=== PATIENT | male | born 1945 | race Caucasian/White ===

== ENCOUNTER 2018-01-09 12:06 | Inpatient (IN) ==
[~2018-01-09 12:06] MED LIST: Aminoglycoside Consult 1 EACH MC ONE
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
[2018-01-09] MEDS ORDERED: Isovue-370 500 ML INFUS..BTL IV ONE (13:59)
[2018-01-09 14:08] LABS: Basophils % 0.3 %; Eosinophils # 0.1 K/mcL (0.0-0.6); Eosinophils % 0.7 %; Hematocrit 41.5 % (37.5-50.1); Hemoglobin 13.9 g/dL (12.9-16.9); Immature Granulocytes % 0.3 % (0-4); Lymphocytes # 2.2 K/mcL (0.6-4.6); Lymphocytes % 22.8 %; Mean Corpuscular HGB Conc 33.5 g/dL (31.6-35.5); Mean Corpuscular Hemoglobin 28.3 pg (28.0-33.3); Mean Corpuscular Volume 84.5 fL (83.0-100.0); Mean Platelet Volume 9.1 fL (9.4-12.4); Monocytes # 0.7 K/mcL (0.0-1.3); Neutrophils # 6.7 K/mcL (1.6-8.9); Platelet Count 205 K/mcL (140-400); Red Blood Count 4.91 M/mcL (4.19-5.50); Red Cell Distribution Width 14.1 % (11.5-14.5); Segmented Neutrophils % 68.9 %
[2018-01-09 14:27] LABS: Troponin I < 0.03 ng/mL (< 0.04)
[2018-01-09 14:40] LABS: BUN/Creatinine Ratio 19 (6-26); Blood Urea Nitrogen 17 mg/dL (8-23); Calcium 9.7 mg/dL (8.6-10.3); Carbon Dioxide 23 mEq/L (23-29); Chloride 102 mEq/L (98-107); Glucose 130 mg/dL (70-105); Osmolality,Calculated 281 (280-300); Potassium 4.4 mEq/L (3.5-5.1); Sodium 134 mEq/L (136-145); eGFR For Non-African Americans > 60 (> 60)
[2018-01-09] MEDS ORDERED: cefTRIAXone 1,000 MG in Water for inj. (sterile) 20 ML 10 ML IVP ONE (16:37)
[2018-01-09] MEDS ORDERED: Azithromycin 500 MG in D5% in Water 250 ML IVPB ONE (16:38)
[2018-01-09 17:13] LABS: INR 1.1; Prothrombin Time 12.1 Seconds (9.4-12.1)
[2018-01-09] MEDS ORDERED: Acetaminophen 325 MG TABLET PO PRN (17:44)
[2018-01-09] MEDS ORDERED: Naloxone 0.4 MG/ML INJ IVP PRN (17:44)
[2018-01-09] MEDS ORDERED: *HR* OxyCODONE Immed Rel 5 MG TABLET PO PRN (17:44)
[2018-01-09] MEDS ORDERED: *HR* HYDROcodone/Acet 5/325 mg TABLET PO PRN (17:44)
[2018-01-09] MEDS ORDERED: Ringers Solution, Lactated 1,000 ML IVC SCH (17:45)
[2018-01-09] MEDS ORDERED: 0.9 % Sodium Chloride 500 ML ONE (17:47)
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
--- NOTE | 2018-01-09 18:08 | IR Progress Note ---
Vital Signs: Vital Signs/O2 Sat, Most Current Temp Pulse Resp BP Pulse Ox 98.1 F 65 18 120/78 99 01/09/18 13:08 01/09/18 15:46 01/09/18 17:45 01/09/18 17:45 01/09/18 15:46 Assessment and Plan Patient imaging reviewed and the patient was evaluated in CT. No clinical signs of infection. Very tiny volume of pleural fluid at the right lung base. There is insufficient fluid for aspiration/drainage at this time. Discussed with the patient and his . It is not indicated to attempt aspiration of the fluid at this time given the small amount. Short term CT followup can be obtained if there is a clinical concern for an empyema. This was discussed with the ER as well. Jeromy Murrieta MD
[2018-01-10] MEDS ORDERED: 0.9 % Sodium Chloride 1,000 ML IVC SCH (00:45)
[2018-01-10] MEDS ORDERED: 0.9 % Sodium Chloride 1,000 ML ONE (00:54)
[2018-01-10] MEDS: Piperacillin/Tazobactam 3.375 GM in 0.9 % Sodium Chloride Mini Bag 100 ML IVPB SCH ×2 (01:01→07:59)
[2018-01-10 06:22] LABS: Basophils % 0.3 %; Eosinophils # 0.1 K/mcL (0.0-0.6); Eosinophils % 1.6 %; Hematocrit 39.9 % (37.5-50.1); Hemoglobin 13.2 g/dL (12.9-16.9); Immature Granulocytes % 0.3 % (0-4); Lymphocytes # 2.1 K/mcL (0.6-4.6); Lymphocytes % 28.4 %; Mean Corpuscular HGB Conc 33.1 g/dL (31.6-35.5); Mean Corpuscular Hemoglobin 28.3 pg (28.0-33.3); Mean Corpuscular Volume 85.4 fL (83.0-100.0); Mean Platelet Volume 9.1 fL (9.4-12.4); Monocytes # 0.6 K/mcL (0.0-1.3); Monocytes % 8.4 %; Neutrophils # 4.6 K/mcL (1.6-8.9); Platelet Count 188 K/mcL (140-400); Red Blood Count 4.67 M/mcL (4.19-5.50); Red Cell Distribution Width 14.2 % (11.5-14.5)
[2018-01-10 06:27] LABS: Prothrombin Time 11.1 Seconds (9.4-12.1)
[2018-01-10 06:42] LABS: BUN/Creatinine Ratio 16 (6-26); Blood Urea Nitrogen 15 mg/dL (8-23); Calcium 9.1 mg/dL (8.6-10.3); Carbon Dioxide 26 mEq/L (23-29); Chloride 106 mEq/L (98-107); Glucose 125 mg/dL (70-105); Osmolality,Calculated 286 (280-300); Potassium 4.3 mEq/L (3.5-5.1); Sodium 137 mEq/L (136-145); eGFR For Non-African Americans > 60 (> 60)
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
[2018-01-10] MEDS: Famotidine 20 MG TABLET PO SCH ×2 (10:43→20:05)
[2018-01-10] MEDS: Levofloxacin 750 MG/150 ML 750 MG/150 ML BAG IVPB SCH (10:43)
[2018-01-10] MEDS: Ibuprofen 600 MG TABLET PO SCH ×3 (10:43→23:33)
[2018-01-10 11:37] LABS: Adenovirus Not Detected (Not Detect); Bordetella Pertussis Not Detected (Not Detect); Chlamydophila pneumoniae Not Detected (Not Detect); Coronavirus 229E Not Detected (Not Detect); Coronavirus HKU1 Not Detected (Not Detect); Coronavirus NL63 Not Detected (Not Detect); Coronavirus OC43 Not Detected (Not Detect); Human Metapneumovirus Not Detected (Not Detect); Human Rhinovirus/Enterovirus Not Detected (Not Detect); Influenza A Subtype 2009 H1 Not Detected (Not Detect); Influenza A Untypeable Not Detected (Not Detect); Influenza B Not Detected (Not Detect); Mycoplasma pneumoniae Not Detected (Not Detect); Parainfluenza Virus 1 Not Detected (Not Detect); Parainfluenza Virus 2 Not Detected (Not Detect); Parainfluenza Virus 3 Not Detected (Not Detect); Parainfluenza Virus 4 Not Detected (Not Detect); Respiratory Syncytial Virus Not Detected (Not Detect)
[2018-01-11] MEDS ORDERED: *HR* Enoxaparin 40 MG/0.4 ML SYRINGE SQ SCH (06:00)
[2018-01-11 07:14] VITALS: BP 138/80
[2018-01-11] MEDS: Levofloxacin 750 MG/150 ML 750 MG/150 ML BAG IVPB SCH (08:28)
[2018-01-11] MEDS: Ibuprofen 600 MG TABLET PO SCH (08:28)
[2018-01-11] MEDS: Famotidine 20 MG TABLET PO SCH (08:29)
--- NOTE | 2018-01-11 09:26 | Discharge Summary ---
- NOTES TO OUTPATIENT PROVIDER Notes to Outpatient Provider: he requires a completion of a ten day course of levaquin, in 4-6 weeks he should see Pulm and have repeat CT chest preformed. Orders not resulted at time of discharge: Pending orders 01/09/18 17:41 Culture,Sputum with Gram Stain [RM] Stat Date of Encounter: 01/11/18 Time of Encounter: 10:00 - Discharge Diagnosis (1) Right-sided chest wall pain Priority: Primary Status: Acute Assessment and Plan: 2/2 Right lung small developing empyema and suspected multifocal pna -prn PO pain control, stading nsaid -treatment as below -no other chest pain, trop negative, EKG without ischemic changes in ED, CTA neg for PE (2) Multifocal pneumonia Priority: Primary Status: Suspected Assessment and Plan: Possible pna, Acquired in community, organism not known at this time, though no leukocytosis, fever or cough -supp o2 prn, incentive spirometry -sputum cx normal resp pema -bl cx ngtd, legionella and strep ag neg -resp viral panel neg -vanc + zosyn empirically as ? empyemea developing -IR for questionable empyema as below -pulm consulted- can de escalate to levaquin, will need 7-10 days and an outpt ct in follow up in 4-[address] Johnny gonzalez at that time -start motrin + ppi/h2 lovely for pain for next 2-3 days -may dc to home with pulm fu (3) Empyema Priority: Primary Status: Acute Assessment and Plan: CXR 01/09: There is a questionable right infrahilar enlarged lymph node or mass. Mild medial right lower lobe atelectasis. Further evaluation with CT thorax with contrast is recommended to evaluate the hilum. CAT Chest 01/09: 1. No acute pulmonary emboli. 2. Right posteromedial basilar mild loculated pleural effusion and adjacent pleural thickening. This could represent a small developing empyema. 3. Patchy bibasilar pulmonary opacities concerning for multifocal bronchopneumonia. 4. There is no hilar mass concerning for primary malignancy. Mild symmetric hilar borderline enlarged lymph nodes likely reactive in nature. No leukoytosis, sxs beside pain, no fevers, not septic, no resp distress Former smoker Former injury to rib cage with multiple broken ribs (by tractor) 2013 His presentation is not c/w CT findings as reported above -vanc + zosyn empirically -pain control -bl cxs ngtd -sputum, strep and legionella ag and vrp as above -IR eval 01/09 and too little fluid to drain -pulm consulted for further work up and treatment recs as above Hospital course: Mr. Underwood is a 73 year old male admitted for right sided chest wall pain found to have small developing empyema and early pna with no other symptoms, leukocytosis or fever. IR and pulm consulted and work up, treatment and dc recs as noted in details above in assessment and plan. he was dc to home in stable condition with pulm fu and plan to cont abx, nsaid and ppi/h2 lovely on dc and repeat ct scan in 4-6 weeks Discharge discussed with: patient - Time Spent with Patient Total time spent providing and/or coordinating discharge services: Less than 30 minutes - Discharge Medications Prescriptions: Ibuprofen [Motrin] 600 mg PO Q8HR 2 Days #6 tablet Famotidine [Pepcid] 20 mg PO BID 3 Days #6 tablet levoFLOXacin [Levaquin] 750 mg PO DAILY 8 Days #8 tablet Omeprazole [PriLOSEC] 20 mg PO DAILY@0630 3 Days #3 capsule. Home Medications: Famotidine [Pepcid] 20 mg PO BID 3 Days #6 tablet 01/11/18 [Rx] Ibuprofen [Motrin] 600 mg PO Q8HR 2 Days #6 tablet 01/11/18 [Rx] Omeprazole [PriLOSEC] 20 mg PO DAILY@0630 3 Days #3 capsule. 01/11/18 [Rx] levoFLOXacin [Levaquin] 750 mg PO DAILY 8 Days #8 tablet 01/11/18 [Rx] Allergies/Adverse Reactions: 3 Allergy/AdvReac Type Severity Reaction Status Date / Time No Known Allergies Allergy Verified 01/09/18 12:09 Date of admission: 01/09/18 17:40 Primary care physician: Sammy Main Consults: 01/10/18 08:15 Consult to Pulmonology [CONS] Routine Consulting Provider: [facility] Reason for Consult: pt c/o r rib pain found to have ?empyema and multi focal pna but asx, tobacco hx, please eval for tx and w/u recs Call Completed: Yes Discharging clinician: Jordyn Barrera - Constitutional Vitals: Temp Pulse Resp BP Pulse Ox 97.5 F L 57 16 138/80 95 01/11/18 07:10 01/11/18 07:10 01/11/18 07:10 01/11/18 07:10 01/11/18 07:10 Exam: General: awake, alert, appears stated age Cardiovascular:regular rate and rhythm, normal S1 & S2, no murmurs, no lower extremity edema Lungs:Normal breath sounds, no wheezes rhonchi, or crackles. Normal respiratory effort on ra, no pain with inspiration today Abdomen:Soft, non-tender, non-distended, + bowel sounds Neurological: AAOx3 - Patient Status Disposition: Home, Self-Care Condition: Good Overall status at discharge: patient is progressing back to baseline - Discharge Instructions Follow Up With: Sammy Main DO [Primary Care Provider] - Carlo Perez MD [Partnered Physician] - Additional Instructions: call pulm office to schedule follow up in 4-6 weeks and they will arrange repeat CT scan of chest - Diet and Activity Activity: increase activity as tolerated Diet: advance to your usual diet
--- NOTE | 2018-01-11 17:29 | Electrocardiograph Report ---
[place] [id number] Test Date: 2018-01-09 Pat Name: Willem Underwood Department: 104 Room: 3A31 Gender: M [employer]: : 1945 Requested By: Maicol Meredith Order Number: [id number] Reading MD: Keira Steward Measurements Intervals [place] Rate: 66 P: 60 IA: 196 QRS: 66 QRSD: 130 T: 45 QT: 386 QTc: 400 Interpretive Statements SINUS RHYTHM RIGHT BUNDLE BRANCH BLOCK Electronically Signed On 01-11-2018 17:27:32 EDT by Keira Steward
== END 2018-01-11 12:27 | disposition home or self-care (01) | DRG 177 ==
LOC: EMEROOARM 12:06 → 3ANU 12:06 → SUATTDRO 17:40 → 3ANU 17:47
PROVIDERS: ADMIT Internal Medicine; ATTEND Internal Medicine